=== PATIENT | male | born 1985 | race Caucasian/White ===

== ENCOUNTER 2020-09-20 06:29 | Emergency (ER) | payer SELFPAY ==
[~2020-09-20] VITALS: Ht 177.8 cm; Wt 84.8 kg
[2020-09-20 06:33] VITALS: BP 157/96
--- NOTE | 2020-09-20 06:36 | NUR ---
To ED bed 11.
--- NOTE | 2020-09-20 07:11 | NUR ---
KAMAR to Ren[facility] BLANC
--- NOTE | 2020-09-20 08:10 | NUR ---
Patient discharged with v/s stable. Written and verbal after care instructions about kidney stones given and explained. Patient verbalized understanding. Ambulatory with steady gait. All questions addressed prior to discharge. Advised to follow up with PMD.
[2020-09-20 08:12] VITALS: BP 157/96
== END 2020-09-20 08:10 | disposition home or self-care (01) ==
LOC: MED 06:29
DX: R10.9 Unspecified abdominal pain (principal); R30.0 Dysuria
CPT/HCPCS: 81002; 99282